=== PATIENT | male | born 1975 | race Caucasian/White ===

== ENCOUNTER → 2020-04-20 | Outpatient (CLI) | payer BC ==
--- NOTE | 2020-04-21 08:57 | RADIOLOGY REPORT (SQ) ---
EXAM DESCRIPTION: SKULL 1-3 VIEWS IMAGES COMPLETED DATE/TIME: 04/20/2020 4:22 pm REASON FOR STUDY: MRI SCREENING FOR METAL M25.562 PAIN IN LEFT KNEE COMPARISON: None. NUMBER OF VIEWS: Three Views. TECHNIQUE: PA, Keeley's, right and left lateral views. LIMITATIONS: None. FINDINGS: SKULL: Sutures are normal. No skull fractures. OTHER: Artifact from the facemask is noted overlying the bridge of the nose. No other foreign bodies . IMPRESSION: No radiopaque foreign bodies. TECHNICAL DOCUMENTATION: JOB ID: [id number] 2010 [employer]- All Rights Reserved Reading location - IP/workstation name: [email or web address]
--- NOTE | 2020-04-21 09:20 | RADIOLOGY REPORT (SQ) ---
EXAM DESCRIPTION: HAND BILATERAL 2 VIEWS IMAGES COMPLETED DATE/TIME: 04/20/2020 4:22 pm REASON FOR STUDY: MRI SCREENING FOR METAL M25.562 PAIN IN LEFT KNEE COMPARISON: None. EXAM PARAMETERS: NUMBER OF VIEWS: Two views right hand. Two views left hand. TECHNIQUE: AP and lateral radiographic images acquired of bilateral hands. LIMITATIONS: None. FINDINGS: No radiopaque foreign bodies are demonstrated in the right or left hand. Soft tissue araiza ges involving the right 3rd distal phalanx which may related to prior trauma. IMPRESSION: No radiopaque foreign bodies. TECHNICAL DOCUMENTATION: JOB ID: [id number] 2010 [employer]- All Rights Reserved Reading location - IP/workstation name: [email or web address]
--- NOTE | 2020-04-21 10:49 | RADIOLOGY REPORT (SQ) ---
EXAM DESCRIPTION: MRI LT LOWER JOINT WITHOUT IMAGES COMPLETED DATE/TIME: 04/20/2020 4:53 pm REASON FOR STUDY: M25.562 PAIN IN LEFT KNEE M25.562 PAIN IN LEFT KNEE COMPARISON: None. TECHNIQUE: Leftknee images acquired and stored on PACS. Multiplanar images include fat sensitive se quences as T1, water sensitive sequences as FST2 or STIR, cartilage sensitive sequences as FSPD, and gradient echo sequences. LIMITATIONS: None. FINDINGS: JOINT AND BURSAE: Joint effusion. There are areas of low signal intensity through the marques nt a along the synovium. Minimal welsh artifact. BONE CORTEX AND MARROW: No alteration of signal to suggest marrow replacement. No worrisome bone lesi ons. No occult fracture. ACL: Intact. No degeneration or ganglion cyst. PCL: Intact. MCL: Intact. No periligamentous edema or fluid. LCL: Intact. No periligamentous edema or fluid. MEDIAL MENISCUS: Tear at the posterior insertion extending to a horizontal tear and flap tear. No di splacement. LATERAL MENISCUS: No tears. No abnormal signal. MEDIAL COMPARTMENT: No focal cartilaginous loss. Osteophytes. LATERAL COMPARTMENT: Cartilage preserved. No bone bruises or reactive marrow edema. No osteophytes. 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 Patellofemoral osteophytes. Retinacular intact. EXTENSOR MECHANISM: Intact. Quadriceps and patella tendons normal. SOFT TISSUES: Adjacent muscles and subcutaneous tissues normal. Normal flow void in popliteal artery and vein. OTHER: No other significant finding. IMPRESSION: Possible PVNS. There is a tear of the medial meniscus. Patellofemoral degenerative changes. Mild medial compartment degenerative changes. TECHNICAL DOCUMENTATION: JOB ID: [id number] [employer]- All Rights Reserved Reading location - IP/workstation name: [email or web address]
== END ==
LOC: RAD 15:47
PROVIDERS: ATTEND Orthopaedic Surgery Sports Medicine
DX: M25.562 Pain in left knee (principal)
CPT/HCPCS: 70250